=== PATIENT | female | born 1975 | race Caucasian/White ===

== ENCOUNTER 2018-05-19 22:15 | Emergency (ER) | payer MEDICAID ==
[2018-05-19] MEDS: HYDROCODONE/APAP (5/325) TAB PO (23:42)
[2018-05-19] MEDS: LIDOCAINE 2% (MDV) 20 ML INJ INJ (23:42)
[2018-05-20] MEDS: CLINDAMYCIN 300 MG INJ IM (00:39)
== END 2018-05-20 00:44 | disposition home or self-care (01) ==
LOC: FTE 05-20 00:44
DX: L02.416 Cutaneous abscess of left lower limb (principal); F17.210 Nicotine dependence, cigarettes, uncomplicated
CPT/HCPCS: 10061; 96372; 99284-25

== ENCOUNTER 2018-05-24 01:14 | Emergency (ER) | payer MEDICAID | END 2018-05-24 05:30 | disposition home or self-care (01) | LOC: FTE 01:14 | DX: Z48.01 Encounter for change or removal of surgical wound dressing (principal); F17.210 Nicotine dependence, cigarettes, uncomplicated | CPT/HCPCS: 99281; Z7502 ==